=== PATIENT | male | born 1975 | race Caucasian/White ===

== ENCOUNTER 2016-10-16 20:30 | Emergency (ER) | payer OTHER ==
[2016-10-16 20:48] VITALS: BP 134/91; PULSE 60; RESP 16; TEMP 98.7
[2016-10-16] MEDS ORDERED: HYDROcodone/APAP 5-325MG 1 EACH TAB PO STA (20:57)
--- NOTE | 2016-10-16 21:02 | ED ---
General Adult HPI - General Chief complaint: Dental/Oral Stated complaint: Face swelling Time Seen by Provider: 10/16/16 20:52 Source: patient, RN notes reviewed Mode of arrival: ambulatory Limitations: no limitations - History of Present Illness Initial comments: This is a 41-year-old male who presents with left-sided dental pain 2 days. Patient is also noticing some swelling to the left lower jaw. Patient states he 's been taking Motrin but this has not helped. Patient states he fractured the bottom left molar a couple of days ago and this is when the pain started. Patient denies any purulent drainage or foul odor. Patient admits to a mild headache. Patient states he does have a dentist. Patient denies any recent fever , chills, shortness breath, chest pain, abdominal pain, nausea/vomiting/diarrhea , back pain, numbness, tingling, hematuria, or visual changes, or any other complaints. - Related Data Home Medications Medication Instructions Recorded Confirmed FLUoxetine HCL [PROzac] 50 mg PO DAILY 10/16/16 10/16/16 [place] Carbonate 750 mg PO 10/16/16 risperiDONE [RisperDAL] 3 mg PO 10/16/16 Previous Rx's Medication Instructions Recorded Penicillin V Potassium [Pen Vee K] 500 mg PO QID 7 Days 10/16/16 traMADol HCL [Ultram] 50 mg PO Q6HR #12 tab 10/16/16 Allergies Allergy/AdvReac Type Severity Reaction Status Date / Time aspirin Allergy Swelling Verified 10/16/16 20:48 Review of Systems ROS Statement: Those systems with pertinent positive or pertinent negative responses have been documented in the HPI. ROS Other: All systems not noted in ROS Statement are negative. Past Medical History Past Medical History: Asthma History of Any Multi-Drug Resistant Organisms: None Reported Past Surgical History: Hernia Repair, Orthopedic Surgery Past Psychological History: No Psychological Hx Reported Smoking Status: Former smoker Past Alcohol Use History: None Reported Past Drug Use History: None Reported General Exam - General Exam Comments Initial Comments: General: The patient is awake and alert, in no distress, and does not appear acutely ill. Eye: Pupils are equal, round and reactive to light, extra-ocular movements are intact. No pain with extraocular movements. No nystagmus. There is normal conjunctiva bilaterally. No signs of icterus. Ears: TMs pink and pearly with intact cone of light bilaterally. Normal external ear canals Nose: Nasal turbinates pink and moist Mouth and throat: Patient has poor dental hygiene and tooth #17 is fractured. There is no surrounding erythema, swelling or purulent drainage. There is very mild external facial swelling to the left lower jaw and this area is tender to palpation. There are moist mucous membranes and no oral lesions. Neck: Submandibular lymph nodes present on the left side. The neck is supple, there is no tenderness or JVD. Cardiovascular: There is a regular rate and rhythm. No murmur, rub or gallop is appreciated. Respiratory: Lungs are clear to auscultation, respirations are non-labored, breath sounds are equal. No wheezes, stridor, rales, or rhonchi. Musculoskeletal: Normal ROM, no tenderness. Strength 5/5. Sensation intact. Radial pulses equal bilaterally 2+. Neurological: A&O x 3. CN II-XII intact, There are no obvious motor or sensory deficits. Coordination appears grossly intact. Speech is normal. Skin: Skin is warm and dry and no rashes or lesions are noted. Psychiatric: Cooperative, appropriate mood & affect, normal judgment. Limitations: no limitations Course Vital Signs 10/16/16 20:45 Temperature 98.7 F Pulse Rate 60 Respiratory 16 Rate Blood Pressure 134/91 O2 Sat by Pulse 96 Oximetry Medical Decision Making - Medical Decision Making This is a 41-year-old male who presents with left-sided dental pain that started 2-3 days ago. On physical exam patient is afebrile in the EC. Patient has poor dental hygiene and tooth #17 is fractured. There is no surrounding erythema, swelling or purulent drainage. There is very mild external facial swelling to the left lower jaw and this area is tender to palpation. There are moist mucous membranes and no oral lesions. I discussed that the patient will be put on a course of Pen-Vee K. I discussed Tylenol and Motrin for pain and tramadol for breakthrough pain. Patient was given a [place] in the EC before discharge. I discussed warm compresses to the area. I discussed the patient is to follow up with a dentist as soon as possible. I discussed return parameters.Discussed that patient should follow up with PCP in one to 2 days or return to the EC for any worsening symptoms or for any further concerns. Patient was receptive to this plan and patient will be discharged home. Disposition Clinical Impression: Pain, dental Disposition: HOME SELF-CARE Condition: Good Instructions: Toothache (ED) Additional Instructions: Please use antibiotics as prescribed. Please use pain medication as prescribed. May use [id number] Tylenol or Motrin for pain. Use warm compresses to the area for pain. Please follow-up with dentist as soon as possible. [facility] dental plan: [facility] [place] [address], . [employer]: Have to pay $50 for x-rays and the rest is covered. [phone]. Please follow up with PCP tomorrow or return to the EC for any worsening symptoms or for any further concerns. Prescriptions: Penicillin V Potassium [Pen Vee K] 500 mg PO QID 7 Days traMADol HCL [Ultram] 50 mg PO Q6HR #12 tab Referrals: Chasity Cuba MD [Primary Care Provider] - 1-2 days Time of Disposition: 21:02
== END 2016-10-16 21:11 | disposition home or self-care (01) ==
LOC: EC 20:30
DX: S02.5XXA Fracture of tooth (traumatic), initial encounter for closed fracture (principal); Z79.899 Other long term (current) drug therapy; Z88.6 Allergy status to analgesic agent; Z87.891 Personal history of nicotine dependence
CPT/HCPCS: 99282; 99283

== ENCOUNTER 2017-02-17 22:22 | Emergency (ER) | payer OTHER ==
[2017-02-17 22:33] VITALS: RESP 18; TEMP 97.9
--- NOTE | 2017-02-17 23:07 | ED ---
General Adult HPI - General Chief complaint: Urogenital Stated complaint: Male Time Seen by Provider: 02/17/17 22:53 Source: patient, RN notes reviewed Mode of arrival: ambulatory Limitations: no limitations - History of Present Illness Initial comments: Chief complaint history of present illness a 41-year-old male to complaint of last left testicular pain getting progressively worse for the past 3 days. Denies any direct injury. Mild nausea. does not think he could have a sexually transmitted disease. - Related Data Home Medications Medication Instructions Recorded Confirmed FLUoxetine HCL [PROzac] 50 mg PO DAILY 10/16/16 10/16/16 [place] Carbonate 750 mg PO 10/16/16 risperiDONE [RisperDAL] 3 mg PO 10/16/16 Previous Rx's Medication Instructions Recorded Penicillin V Potassium [Pen Vee K] 500 mg PO QID 7 Days 10/16/16 traMADol HCL [Ultram] 50 mg PO Q6HR #12 tab 10/16/16 Doxycycline Hyclate 100 mg PO BID #20 tab 02/18/17 Allergies Allergy/AdvReac Type Severity Reaction Status Date / Time aspirin AdvReac Epistaxis Verified 02/17/17 23:07 Review of Systems ROS Statement: Those systems with pertinent positive or pertinent negative responses have been documented in the HPI. review of systems no headache chest pain shortness breath or GI problems decreased appetite. No neuro deficits complained of. system left testicular pain and swelling. 3 days. past medical problems none. Surgeries include left elbow titanium replacement. He states she's had 19 hernia surgeries. Family history father had gallbladder cancer grandmother had spider cancer. She has ALLERGIES to aspirin. He does smoke he was encouraged to stop denies alcohol use ROS Other: All systems not noted in ROS Statement are negative. Past Medical History Past Medical History: Asthma History of Any Multi-Drug Resistant Organisms: None Reported Past Surgical History: Hernia Repair, Orthopedic Surgery Past Psychological History: No Psychological Hx Reported Smoking Status: Current every day smoker Past Alcohol Use History: None Reported Past Drug Use History: None Reported General Exam - General Exam Comments Initial Comments: General: The patient is awake and alert,here because he's had left testicular pain for 3 days. Vital signs temperature 97.9 pulse 70 respiratory rate 18 pulse ox 90% room air blood pressure 114/66 Gastrointestinal: patient reports having had 19 hernia surgeries over the years. , left testicle larger than the right. Tenderness with palpation. Positive wrist or reflex. Denies penile discharge. Pain slightly less when the testicle is lifted up and increased when pushed downward. Patient will have an ultrasound to rule out torsion versus epididymitis Limitations: no limitations Course Vital Signs 02/17/17 22:30 Temperature 97.9 F Pulse Rate 70 Respiratory 18 Rate Blood Pressure 114/66 O2 Sat by Pulse 98 Oximetry Medical Decision Making - Medical Decision Making The patient still yet to provide a urine specimen which will be tested for regular urinalysis as well as Neisseria and gonorrhea. UltrasoundWas done and reviewed by radiologist and his impression is no evidence of torsion. The left testicle is heterogeneous and hypervascular which may reflect orchitis. Bilateral varicoceles are present. As read by Dr. Dean Patient will receive ceftriaxone 250 IM and doxycycline 100 twice a day for 10 days. Advised follow-up with his family physician and urology if he does not get improvement. Disposition Clinical Impression: Orchiditis Disposition: HOME SELF-CARE Condition: Stable Instructions: Orchitis (ED), Testicle Pain (ED) Additional Instructions: Call for urine results. Take medications until complete. Follow-up with Dr. Cuba. If no improvement in the next several days follow-up with on-call urologist Dr. Krause Prescriptions: Doxycycline Hyclate 100 mg PO BID #20 tab Referrals: Chasity Cuba MD [Primary Care Provider] - 1-2 days Time of Disposition: 00:40
--- NOTE | 2017-02-18 00:25 | US ---
EXAM: US Scrotum CLINICAL HISTORY: Reason: L teste pain r/o epididymitis v torsion TECHNIQUE: Real-time ultrasound of the scrotum with color Doppler and image documentation. COMPARISON: No relevant prior studies available. FINDINGS: Right testicle: 4.5 x 1.7 x 2.4 cm No torsion. Small hydrocele. Varicocele present. Left testicle: 5.0 x 2.6 x 2.9 cm Left testicle is heterogeneous and hypervascular compared to the right No torsion. Small hydrocele. Varicocele present. Epididymides: Right Epididymis: 1.1 cm, cyst visualized measuring 0.2 cm Left Epididymis: 1.2 cm, cyst visualized measuring 0.3 cm Scrotum: Unremarkable. IMPRESSION: No evidence of torsion. The left testicle is heterogeneous and hypervascular which may reflect orchitis. Bilateral varicoceles present.
[2017-02-18] MEDS ORDERED: DOXYCYCLINE 50 MG CAP PO STA (00:40)
[2017-02-18] MEDS ORDERED: cefTRIAXone 250 MG VIAL IM STA (00:43)
[2017-02-18 00:53] VITALS: BP 113/58; PULSE 66
[2017-02-18 01:17] LABS: Appearance,Urine Clear (Clear); Bilirubin,Urine Negative (Negative); Glucose,Urine (UA) Negative (Negative); Ketones,Urine Negative (Negative); Leukocyte Esterase,Urine Negative (Negative); Nitrite,Urine Negative (Negative); Protein,Urine Negative (Negative); Specific Gravity,Urine 1.019 (1.001-1.035); UA Billing (MACRO vs. MICRO) CHEM
== END 2017-02-18 01:05 | disposition home or self-care (01) ==
LOC: EC 22:22
DX: N45.2 Orchitis (principal); I86.1 Scrotal varices; F17.200 Nicotine dependence, unspecified, uncomplicated; Z79.899 Other long term (current) drug therapy; Z88.6 Allergy status to analgesic agent
CPT/HCPCS: 81003; 87491; 87591; 87086; 93975; 76870; 99284; 96372; J0696

== ENCOUNTER 2017-04-14 00:48 | Emergency (ER) | payer OTHER ==
[2017-04-14 00:53] VITALS: BP 124/72; PULSE 69; RESP 18; TEMP 97
[2017-04-14] MEDS ORDERED: ORPHENADRINE 30 MG/ML 2 ML VIAL IM STA (01:01)
[2017-04-14] MEDS ORDERED: KETOROLAC 60 MG/2 ML VIAL IM STA (01:01)
--- NOTE | 2017-04-14 01:03 | ED ---
Back Pain HPI - General Chief Complaint: Back Pain/Injury Stated Complaint: back pain Time Seen by Provider: 04/14/17 00:57 Source: patient, RN notes reviewed Limitations: no limitations - History of Present Illness Initial Comments: 41-year-old male presents emergency Department chief complaint low back pain. Patient states earlier tonight at work she was lifting a box 15-20 pounds states he felt a pull in his low back. Patient states his right-sided low back pain. Patient had no prior back injuries. Patient denies any bowel, bladder incontinence or retention. Denies any saddle anesthesias or lower extremity paresthesias. He states any movement makes the pain worse and is much better at rest. Patient has no abdominal pain denies any nausea, vomiting diarrhea constipation. - Related Data Previous Rx's Medication Instructions Recorded Cyclobenzaprine [Flexeril] 10 mg PO TID PRN #15 tab 04/14/17 Hydrocodone/Acetaminophen [[place] 1 tab PO Q6HR PRN #15 tab 04/14/17 5-325] Allergies Allergy/AdvReac Type Severity Reaction Status Date / Time aspirin AdvReac Epistaxis Verified 04/14/17 00:53 Review of Systems ROS Statement: Those systems with pertinent positive or pertinent negative responses have been documented in the HPI. ROS Other: All systems not noted in ROS Statement are negative. Past Medical History Past Medical History: Asthma History of Any Multi-Drug Resistant Organisms: None Reported Past Surgical History: Hernia Repair, Orthopedic Surgery Past Psychological History: No Psychological Hx Reported Smoking Status: Never smoker Past Alcohol Use History: None Reported Past Drug Use History: None Reported General Exam Limitations: no limitations General appearance: alert, in no apparent distress Neck exam: Present: normal inspection, full ROM. Absent: tenderness, meningismus, lymphadenopathy Respiratory exam: Present: normal lung sounds bilaterally. Absent: respiratory distress, wheezes, rales, rhonchi, stridor Cardiovascular Exam: Present: regular rate, normal rhythm, normal heart sounds. Absent: systolic murmur, diastolic murmur, rubs, gallop, clicks GI/Abdominal exam: Present: soft, normal bowel sounds. Absent: distended, tenderness, guarding, rebound, rigid Extremities exam: Present: normal inspection, full ROM, normal capillary refill , other (Lower extremity strength equal bilaterally neurovascular intact with equal pedal pulses). Absent: tenderness, pedal edema, joint swelling, calf tenderness Back exam: Present: normal inspection, full ROM (Moderate discomfort with range of motion), tenderness (Right low back), muscle spasm, paraspinal tenderness, other (Pain with straight leg raise). Absent: vertebral tenderness Neurological exam: Present: alert, oriented X3, CN II-XII intact, reflexes normal. Absent: motor sensory deficit Course Vital Signs 04/14/17 00:49 Temperature 97 F L Pulse Rate 69 Respiratory 18 Rate Blood Pressure 124/72 O2 Sat by Pulse 97 Oximetry Medical Decision Making - Medical Decision Making 41-year-old male presented for low back pain. Patient has a lumbar strain with no red flecks symptoms or neurological deficits. Patient we treated with conservative treatment pain medication, muscle relaxers and follow-up with workman's comp. Return parameters were discussed. Disposition Clinical Impression: Strain of lumbar region Disposition: HOME SELF-CARE Condition: Stable Instructions: Acute Low Back Pain (ED) Additional Instructions: Please return to the Emergency Department if symptoms worsen or any other concerns. Prescriptions: Cyclobenzaprine [Flexeril] 10 mg PO TID PRN #15 tab PRN Reason: Muscle Spasm Hydrocodone/Acetaminophen [[place] 5-325] 1 tab PO Q6HR PRN #15 tab PRN Reason: Pain Referrals: Chasity Cuba MD [Primary Care Provider] - 1-2 days Time of Disposition: 01:03
== END 2017-04-14 01:22 | disposition home or self-care (01) ==
LOC: EC 00:48
DX: S39.012A Strain of muscle, fascia and tendon of lower back, initial encounter (principal); Z88.6 Allergy status to analgesic agent; X50.9XXA Other and unspecified overexertion or strenuous movements or postures, initial encounter; Y93.89 Activity, other specified; Y92.69 Other specified industrial and construction area as the place of occurrence of the external cause
CPT/HCPCS: 99283; 96372 ×2; J2360; J1885

== ENCOUNTER 2017-08-21 20:17 | Emergency (ER) | payer OTHER ==
[2017-08-21] MEDS ORDERED: SODIUM CHLORIDE 0.9% 1,000 ML IV STA (20:37)
[2017-08-21] MEDS ORDERED: KETOROLAC 30 MG/ML 1 ML VIAL IVP STA (20:37)
[2017-08-21] MEDS ORDERED: ORPHENADRINE 30 MG/ML 2 ML VIAL IVP STA (20:37)
--- NOTE | 2017-08-21 20:41 | ED ---
General Adult HPI - General Chief complaint: Abdominal Pain Stated complaint: Back pain Time Seen by Provider: 08/21/17 20:32 Source: patient, RN notes reviewed Mode of arrival: ambulatory Limitations: no limitations - History of Present Illness Initial comments: 42-year-old male presents to the emergency department with a chief complaint of right flank pain. He states he's had this for the last few days. Any deep breaths or movement causes sharp stabbing pain to his back. His family has a history of kidney failure so he was concerned. Denies emergency with urination. States he had one episode of vomiting with the pain but that has subsided. There is no anterior abdominal pain. There is no other symptoms and the patient at this time. He states that he has never had anything like this before. He denies any falls traumas or injuries. He states he does move around a lot at work. Patient denies any recent fever, chills, shortness of breath, chest pain, abdominal pain, numbness or tingling, dysuria or hematuria, constipation or diarrhea, headaches or visual changes, or any other current symptoms. - Related Data Home Medications Medication Instructions Recorded Confirmed Ibuprofen [Motrin Ib] 400 mg PO Q6H PRN 08/21/17 08/21/17 Previous Rx's Medication Instructions Recorded Ibuprofen [Motrin] 600 mg PO Q6HR PRN #20 tab 08/21/17 Orphenadrine [Norflex] 100 mg PO Q12H #10 tablet.er 08/21/17 Allergies Allergy/AdvReac Type Severity Reaction Status Date / Time aspirin AdvReac Epistaxis Verified 08/21/17 20:54 Review of Systems ROS Statement: Those systems with pertinent positive or pertinent negative responses have been documented in the HPI. ROS Other: All systems not noted in ROS Statement are negative. Past Medical History Past Medical History: Asthma History of Any Multi-Drug Resistant Organisms: None Reported Past Surgical History: Hernia Repair, Orthopedic Surgery Past Psychological History: No Psychological Hx Reported Smoking Status: Current every day smoker Past Alcohol Use History: None Reported Past Drug Use History: None Reported General Exam - General Exam Comments Initial Comments: General: The patient is awake and alert, in no distress, and does not appear acutely ill. Eye: Pupils are equal, round and reactive to light, extra-ocular movements are intact; there is normal conjunctiva bilaterally. No signs of icterus. Ears, nose, mouth and throat: There are moist mucous membranes and no oral lesions. Neck: The neck is supple, there is no tenderness. Cardiovascular: There is a regular rate and rhythm. No murmur, rub or gallop is appreciated. Respiratory: Lungs are clear to auscultation, respirations are non-labored, breath sounds are equal. No wheezes, stridor, rales, or rhonchi. Gastrointestinal: Soft, non-distended, non-tender abdomen without masses or organomegaly noted. There is no rebound or guarding present. right sided CVA tenderness. Bowel sounds are unremarkable. Back: There is no tenderness to palpation in the midline. Some tenderness of the right paraspinal region in the lumbar area There is no obvious deformity. No rashes noted. Musculoskeletal: Normal ROM, no tenderness, There is no pedal edema. There is no calf tenderness or swelling. Sensation intact. Pulses equal bilaterally 2+. Neurological: CN II-XII intact, There are no obvious motor or sensory deficits. Coordination appears grossly intact. Speech is normal. Skin: Skin is warm and dry and no rashes or lesions are noted. Psychiatric: Cooperative, appropriate mood & affect, normal judgment. Limitations: no limitations Course Vital Signs 08/21/17 20:27 Temperature 98.0 F Pulse Rate 81 Respiratory 16 Rate Blood Pressure 123/83 O2 Sat by Pulse 98 Oximetry Medical Decision Making - Medical Decision Making 42-year-old male presents for right-sided back pain. At this time patient's lab work is reviewed and stable. X-rays reviewed as well. This time due to the fact is positional type pain. We discussed most likely a lumbar muscle strain. We did discuss mcfp. We did discuss return parameters and follow- up and all questions. Patient stated that he understood and he is agreement this plan. All questions have been answered. He will be discharged. - Lab Data Result diagrams: 08/21/17 20:41 08/21/17 20:41 Lab Results 08/21/17 08/21/17 08/21/17 Range/Units 20:41 20:41 20:41 WBC 8.9 (3.8-10.6) k/uL RBC 4.75 (4.30-5.90) m/uL Hgb 15.0 (13.0-17.5) gm/dL Hct 43.3 (39.0-53.0) % MCV 91.3 (80.0-100.0) fL MCH 31.6 (25.0-35.0) pg MCHC 34.7 (31.0-37.0) g/dL RDW 14.6 (11.5-15.5) % Plt Count 320 (150-450) k/uL Neutrophils % 58 % Lymphocytes % 32 % Monocytes % 6 % Eosinophils % 1 % Basophils % 0 % Neutrophils # 5.1 (1.3-7.7) k/uL Lymphocytes # 2.9 (1.0-4.8) k/uL Monocytes # 0.5 (0-1.0) k/uL Eosinophils # 0.1 (0-0.7) k/uL Basophils # 0.0 (0-0.2) k/uL Sodium 141 (137-145) mmol/L Potassium 4.0 (3.5-5.1) mmol/L Chloride 103 (98-107) mmol/L Carbon Dioxide 28 (22-30) mmol/L Anion Gap 10 mmol/L BUN 8 L (9-20) mg/dL Creatinine 0.90 (0.66-1.25) mg/dL Est GFR (MDRD) Af Amer >60 (>60 ml/min/1.73 sqM) Est GFR (MDRD) Non-Af >60 (>60 ml/min/1.73 sqM) Glucose 95 (74-99) mg/dL Calcium 9.4 (8.4-10.2) mg/dL Total Bilirubin 0.4 (0.2-1.3) mg/dL AST 28 (17-59) U/L ALT 30 (21-72) U/L Alkaline Phosphatase 48 (38-126) U/L Total Protein 7.3 (6.3-8.2) g/dL Albumin 4.5 (3.5-5.0) g/dL Amylase 44 (30-110) U/L Lipase 34 (23-300) U/L Urine Color Yellow Urine Appearance Clear (Clear) Urine pH 7.0 (5.0-8.0) Ur Specific [place] 1.013 (1.001-1.035) Urine Protein Trace H (Negative) Urine Glucose (UA) Negative (Negative) Urine Ketones Negative (Negative) Urine Blood Negative (Negative) Urine Nitrite Negative (Negative) Urine Bilirubin Negative (Negative) Urine Urobilinogen <2.0 (<2.0) mg/dL Ur Leukocyte Esterase Negative (Negative) - Radiology Data Radiology results: report reviewed, image reviewed Disposition Clinical Impression: Lumbar strain Disposition: HOME SELF-CARE Condition: Stable Instructions: Low Back Strain (ED), Lower Back Exercises (ED) Additional Instructions: Please use medication as discussed. Please follow up with family doctor if symptoms have not improved over the next two days. Please return to the emergency room if your symptoms increase or worsen or for any other concerns. Prescriptions: Ibuprofen [Motrin] 600 mg PO Q6HR PRN #20 tab PRN Reason: Pain Orphenadrine [Norflex] 100 mg PO Q12H #10 tablet.er Referrals: Lizzeth Kelley MD [STAFF PHYSICIAN] - 1-2 days Time of Disposition: 22:27
[2017-08-21 20:58] LABS: Appearance,Urine Clear (Clear); Basophils % (A) 0 %; Bilirubin,Urine Negative (Negative); Blood,Urine Negative (Negative); Color,Urine Yellow; Eosinophils # (A) 0.1 k/uL (0-0.7); Eosinophils % (A) 1 %; Glucose,Urine (UA) Negative (Negative); HCT 43.3 % (39.0-53.0); Ketones,Urine Negative (Negative); Leukocyte Esterase,Urine Negative (Negative); Lymphocytes # (A) 2.9 k/uL (1.0-4.8); Lymphocytes % (A) 32 %; MCH 31.6 pg (25.0-35.0); MCHC 34.7 g/dL (31.0-37.0); MCV 91.3 fL (80.0-100.0); Mean Platelet Volume 7.5; Monocytes # (A) 0.5 k/uL (0-1.0); Monocytes % (A) 6 %; Neutrophils # (A) 5.1 k/uL (1.3-7.7); Neutrophils % (A) 58 %; Nitrite,Urine Negative (Negative); Platelet Count 320 k/uL (150-450); Protein,Urine Trace (Negative); RBC 4.75 m/uL (4.30-5.90); RDW 14.6 % (11.5-15.5); Specific Gravity,Urine 1.013 (1.001-1.035); Urobilinogen,Urine <2.0 mg/dL (<2.0); WBC 8.9 k/uL (3.8-10.6)
[2017-08-21 21:08] LABS: ALT 30 U/L (21-72); AST 28 U/L (17-59); Albumin 4.5 g/dL (3.5-5.0); Alkaline Phosphatase 48 U/L (38-126); Amylase 44 U/L (30-110); Anion Gap 10 mmol/L; Blood Urea Nitrogen 8 mg/dL (9-20); Calcium 9.4 mg/dL (8.4-10.2); Carbon Dioxide 28 mmol/L (22-30); Chloride 103 mmol/L (98-107); Glucose 95 mg/dL (74-99); Lipase 34 U/L (23-300); Sodium 141 mmol/L (137-145); Total Bilirubin 0.4 mg/dL (0.2-1.3); Total Protein 7.3 g/dL (6.3-8.2)
--- NOTE | 2017-08-21 22:03 | XR ---
PROCEDURE: XR lumbar spine - 3V DATE AND TIME: 08/21/2017 9:30 PM REFERRING PHYSICIAN: Taryn Phillip CLINICAL INDICATION: [facility], Pain TECHNIQUE: Department protocol. COMPARISON: None FINDINGS: Bones and joints and soft tissues are unremarkable. There is no malalignment. No incidental findings. IMPRESSION: Negative examination.
[2017-08-21 22:41] VITALS: BP 126/80; PULSE 80; RESP 18; TEMP 97.9
== END 2017-08-21 22:41 | disposition home or self-care (01) ==
LOC: EC 20:17
DX: S39.012A Strain of muscle, fascia and tendon of lower back, initial encounter (principal); R10.9 Unspecified abdominal pain; R11.10 Vomiting, unspecified; F17.200 Nicotine dependence, unspecified, uncomplicated; Z88.6 Allergy status to analgesic agent
CPT/HCPCS: 36415; 80053; 82150; 83690; 85025; 81003; 72100; 99284; 96374; 96375; 96361; J2360; J1885

== ENCOUNTER 2017-11-19 21:07 | Emergency (ER) | payer OTHER ==
[2017-11-19] MEDS ORDERED: MORPHINE SULFATE 4 MG/0.8 ML SYRINGE (INJ) IVP STA (21:39)
[2017-11-19] MEDS ORDERED: ONDANSETRON 4 MG/2 ML VIAL IVP STA (21:40)
[2017-11-19] MEDS ORDERED: KETOROLAC 30 MG/ML 1 ML VIAL IVP STA (21:41)
[2017-11-19] MEDS ORDERED: SODIUM CHLORIDE 0.9% 1,000 ML IV SCH (21:45)
--- NOTE | 2017-11-19 22:10 | XR ---
EXAMINATION TYPE: XR tibia fibula RT DATE OF EXAM: 11/19/2017 COMPARISON: NONE HISTORY: Pain TECHNIQUE: 4 views FINDINGS: I see no fracture nor dislocation. Tibia and fibula appear intact. Knee joint and ankle erin nt appear intact. IMPRESSION: Negative right tibia and fibula exam. Small Achilles calcaneal spur noted.
--- NOTE | 2017-11-19 22:11 | XR ---
EXAMINATION TYPE: XR ankle complete RT DATE OF EXAM: 11/19/2017 COMPARISON: NONE HISTORY: Pain TECHNIQUE: 3 views FINDINGS: I see no fracture nor dislocation. Ankle mortise is anatomic. Joint spaces are normal. IMPRESSION: Negative right ankle exam
--- NOTE | 2017-11-19 22:13 | XR ---
EXAMINATION TYPE: XR foot complete RT DATE OF EXAM: 11/19/2017 COMPARISON: NONE HISTORY: Pain TECHNIQUE: 3 views FINDINGS: Metatarsals appear intact. I see no fracture nor dislocation. Joint spaces are normal. IMPRESSION: Negative right foot exam.
--- NOTE | 2017-11-19 23:10 | ED ---
Lower Extremity Injury HPI - General Chief Complaint: Extremity Injury, Lower Stated Complaint: rt leg trauma Time Seen by Provider: 11/19/17 21:17 Source: patient Mode of arrival: wheelchair Limitations: no limitations - History of Present Illness Initial Comments: 42 years old male is complaining about right leg pain, pain starts from the below knee all the way to the ankle and to the right foot he was working on a van, a lifting device gave him, the van landed on his right lower extremity him a there is no open wound or obvious deformity is complaining about the pain. No other injuries to the rest of the body. Eyes any head injury no chest pain or shortness of breath no abdominal pain no frequency urgency dysuria - Related Data Previous Rx's Medication Instructions Recorded HYDROcodone/APAP 5-325MG [Milroy 5] 1 each PO Q6HR PRN #12 tab 11/19/17 Ibuprofen [Motrin] 800 mg PO TID #30 tab 11/19/17 Allergies Allergy/AdvReac Type Severity Reaction Status Date / Time aspirin AdvReac Epistaxis Verified 11/19/17 21:22 Review of Systems ROS Statement: Those systems with pertinent positive or pertinent negative responses have been documented in the HPI. ROS Other: All systems not noted in ROS Statement are negative. Past Medical History Past Medical History: Asthma History of Any Multi-Drug Resistant Organisms: None Reported Past Surgical History: Hernia Repair, Orthopedic Surgery Past Psychological History: No Psychological Hx Reported Smoking Status: Current every day smoker Past Alcohol Use History: None Reported Past Drug Use History: None Reported General Exam - General Exam Comments Initial Comments: General: The patient is awake and alert, planing about pain in the right lower leg, initially he did not want me to examine the leg because it was too painful but then once I explained that is important that we examine her leg and he agreed Skin: Skin is warm and dry and no rashes or lesions are noted. No laceration or obvious deformity noticed of the right lower leg Eye: Pupils are equal, round and reactive to light, extra-ocular movements are intact; there is normal conjunctiva bilaterally. Ears, nose, mouth and throat: There are moist mucous membranes and no oral lesions. Neck: The neck is supple, there is no tenderness or JVD. Cardiovascular: There is a regular rate and rhythm. No murmur, rub or gallop is appreciated. Respiratory: To auscultation bilateral, no wheezing no rhonchi no distress respiratory nguyen noticed Gastrointestinal: Soft, non-distended, non-tender abdomen without masses or organomegaly noted. There is no rebound or guarding present. Bowel sounds are unremarkable. Back: There is no tenderness to palpation in the midline. There is no obvious deformity. Musculoskeletal: Right lower extremity is warm, pulses are palpable unable to check the capillary refill since he has fungal infection affect him on his toenails on the right foot but no neurovascular compromise noticed Neurological: CN II-XII intact, Cranial nerves III through XII are intact. There are no obvious motor or sensory deficits. Coordination appears grossly intact. Speech is normal. Psychiatric: Cooperative, appropriate mood & affect, normal judgment. Limitations: no limitations Course Vital Signs 11/19/17 21:12 Temperature 97.1 F L Pulse Rate 85 Respiratory 16 Rate Blood Pressure 122/56 O2 Sat by Pulse 98 Oximetry Right leg radiographs are normal, no injury to the tibia-fibula ankle joint looks good and no fracture noticed in the right foot as well regarding home on Motrin 800 mg 3 times a day as needed and Milroy 5 years 3 times a day for next [address] Rey stanford is on a city call today and he will follow with the Dr Femi Williamson Disposition Clinical Impression: Right leg injury Disposition: HOME SELF-CARE Condition: Good Instructions: Ankle Sprain (ED), Foot Contusion (ED) Prescriptions: HYDROcodone/APAP 5-325MG [Milroy 5] 1 each PO Q6HR PRN #12 tab PRN Reason: Pain Ibuprofen [Motrin] 800 mg PO TID #30 tab Is patient prescribed a controlled substance at d/c from ED?: Yes If prescribed controlled substance>3 days was MAPS reviewed?: No When asked, does pt state using other controlled substances?: No Referrals: None,Stated [Primary Care Provider] - 1-2 days Femi Williamson MD [STAFF PHYSICIAN] - 1-2 days
[2017-11-19 23:14] VITALS: BP 132/71; PULSE 81; RESP 17; TEMP 97.8
== END 2017-11-19 23:40 | disposition home or self-care (01) ==
LOC: EC 21:07
DX: S89.91XA Unspecified injury of right lower leg, initial encounter (principal); F17.200 Nicotine dependence, unspecified, uncomplicated; Z88.6 Allergy status to analgesic agent; X50.0XXA Overexertion from strenuous movement or load, initial encounter
CPT/HCPCS: 99283; 96374; 96375 ×2; 96361; 73590; 73610; 73630; J2405; J1885; J2270

== ENCOUNTER 2023-04-26 19:37 | Emergency (ER) | payer OTHER ==
[2023-04-26 19:45] VITALS: TEMP 97.8
[2023-04-26] MEDS ORDERED: HYDROmorphone 0.5 MG/0.5 ML SYRINGE IVP STA (19:57)
--- NOTE | 2023-04-26 21:14 | XR ---
EXAMINATION TYPE: XR hand complete LT, XR forearm LT DATE OF EXAM: 04/26/2023 8:14 PM CLINICAL INDICATION:Male, 47 years old with history of injury; [facility] COMPARISON: None TECHNIQUE: XR hand complete LT, XR forearm LT Frontal, lateral and oblique views were obtained. Front al and lateral views of the forearm. FINDINGS: Normal alignment of the visualized joints. No acute osseous pathology is identified. No e vidence of soft tissue swelling. Increased radiopaque densities are seen along the volar aspect of th e wrist. Soft tissue injury appears on the volar aspect of the wrist and possibly even the forearm. C hronic injuries to the medial epicondyle with well-corticated osseous bodies present. IMPRESSION: 1. No acute osseous pathology. 2. Suspected radiopaque foreign bodies along the volar aspect of the wrist.
[2023-04-26] MEDS ORDERED: LIDOCAINE 1% INJ 10MG/ML (20 ML MDV) SQ ONE (21:59)
--- NOTE | 2023-04-26 23:43 | ED ---
Upper Extremity HPI - General Chief Complaint: Extremity Injury, Upper Stated Complaint: Lac on left wrist Time Seen by Provider: 04/26/23 19:44 Source: patient, EMS Mode of arrival: EMS - History of Present Illness Initial Comments: Patient is a 47-year-old male who presents to the emergency department for laceration. Patient was transferred from [facility] apparently for orthopedic services however they did not take x-rays. Patient was using a knife grinder today and injured his left wrist. He has laceration to the wrist with pain. He denies numbness and tingling. Last tetanus unknown. - Related Data Previous Rx's Medication Instructions Recorded Cephalexin [Keflex] 500 mg PO Q6HR #28 cap 04/26/23 Ibuprofen [Motrin] 800 mg PO Q6H PRN #30 tab 04/26/23 Allergies Allergy/AdvReac Type Severity Reaction Status Date / Time aspirin AdvReac Epistaxis Verified 04/26/23 20:28 Review of Systems ROS Statement: Those systems with pertinent positive or pertinent negative responses have been documented in the HPI. ROS Other: All systems not noted in ROS Statement are negative. Past Medical History Past Medical History: Asthma History of Any Multi-Drug Resistant Organisms: None Reported Past Surgical History: Hernia Repair, Orthopedic Surgery Additional Past Surgical History / Comment(s): Elbow surgery Past Psychological History: No Psychological Hx Reported Smoking Status: Never smoker Past Alcohol Use History: None Reported Past Drug Use History: None Reported General Exam General appearance: alert Head exam: Present: atraumatic, normocephalic, normal inspection Respiratory exam: Present: normal lung sounds bilaterally. Absent: respiratory distress, wheezes, rales, rhonchi, stridor Cardiovascular Exam: Present: regular rate, normal rhythm, normal heart sounds. Absent: systolic murmur, diastolic murmur, rubs, gallop, clicks Extremities exam: Present: other (small lac proximal left ventral forearm.2nd lac across ventral left wrist. 3rd lac approaching lateral aspect of the thumb. No tendon damage visualized. Sensation intact. No vascular compromise. full ROM of the wrist. Partial flexion of the fingers without the ability to extend) Neurological exam: Present: alert Psychiatric exam: Present: normal affect, normal mood Skin exam: Present: warm, dry, intact, normal color. Absent: rash Course Vital Signs 04/26/23 04/26/23 04/26/23 19:37 21:20 22:00 Temperature 97.8 F Pulse Rate 57 L 60 61 Respiratory 17 16 16 Rate Blood Pressure 137/95 129/95 129/95 O2 Sat by Pulse 100 95 96 Oximetry 04/27/23 00:28 Temperature Pulse Rate 74 Respiratory 17 Rate Blood Pressure 114/74 O2 Sat by Pulse 96 Oximetry Medical Decision Making - Medical Decision Making Was pt. sent in by a medical professional or institution (, STEPHANIE, MAILROOM CLERK, urgent care, hospital, or fci...) When possible be specific @ -No Did you speak to anyone other than the patient for history (EMS, parent, family, police, friend...)? What history was obtained from this source @ -No Did you review nursing and triage notes (agree or disagree)? Why? @ -I reviewed and agree with nursing and triage notes Were old charts reviewed (outside hosp., previous admission, EMS record, old EKG, old radiological studies, urgent care reports/EKG's, fci records)? Report findings @ -No old charts were reviewed Differential Diagnosis (chest pain, altered mental status, abdominal pain women, abdominal pain men, vaginal bleeding, weakness, fever, dyspnea, syncope, headache, dizziness, GI bleed, back pain, seizure, CVA, palpatations, mental health)? @ -not applicable EKG interpreted by me (3pts min.). @ -As above X-rays interpreted by me (1pt min.). @ -acute fracture or dislocation. Suspected radiopaque foreign bodies CT interpreted by me (1pt min.). @ -None done U/S interpreted by me (1pt. min.). @ -None done What testing was considered but not performed or refused? (CT, X-rays, U/S, labs)? Why? @ -None What meds were considered but not given or refused? Why? @ -None Did you discuss the management of the patient with other professionals (professionals i.e. STEPHANIE Ayoub, MAILROOM CLERK, lab, RT, psych nurse, social work instructor, computer systems software architect, teacher, fire information officer, correctional casework specialist)? Give summary @ -No Was smoking cessation discussed for >3mins.? @ -No Was critical care preformed (if so, how long)? @ -No Were there social determinants of health that impacted care today? How? (Homelessness, low income, unemployed, alcoholism, drug addiction, transportation, low edu. Level, literacy, decrease access to med. care, long-term, rehab)? @ -No Was there de-escalation of care discussed even if they declined (Discuss DNR or withdrawal of care, Hospice)? DNR status @ -No What co-morbidities impacted this encounter? (DM, HTN, Smoking, COPD, CAD, Cancer, CVA, ARF, Chemo, Hep., AIDS, mental health diagnosis, sleep apnea, morbid obesity)? @ -None Was patient admitted / discharged? Hospital course, mention meds given and route, prescriptions, significant lab abnormalities, going to OR and other pertinent info. @ -47-year-old male presenting for lacerations. Patient unable to extend fingers despite laceration being on ventral aspect of the wrist. No tendon damage is visualized. Sensation intact. No vascular compromise. X-ray interpreted by myself no fracture or possible foreign bodies. The wrist wounds were irrigated extensively and approximated with sutures. Patient declined closure of the proximal forearm laceration. Patient given IV Rocephin. Discussed wound care data. Discussed case with Dr. Kilpatrick recommended follow-up in the office. Patient placed on Keflex prophylactically. Discussed return parameters. Undiagnosed new problem with uncertain prognosis? @ -No Drug Therapy requiring intensive monitoring for toxicity (Heparin, Nitro, Insulin, Cardizem)? @ -[No] Were any procedures done? @ -[No] Diagnosis/symptom? @ -left wrist injury, laceration Acute, or Chronic, or Acute on Chronic? @ -acute Uncomplicated (without systemic symptoms) or Complicated (systemic symptoms)? @ -uncomplicated Side effects of treatment? @ -[No] Exacerbation, Progression, or Severe Exacerbation? @ -[No] Poses a threat to life or bodily function? How? (Chest pain, [place], VA, pneumonia, PE, COPD, DKA, ARF, appy, cholecystitis, CVA, Diverticulitis, Homicidal, Suicidal, threat to staff... and all critical care pts) @ -[No] Dr. Schneider is my attendnig Disposition Clinical Impression: Laceration, Left wrist injury Disposition: HOME SELF-CARE Condition: Good Instructions (If sedation given, give patient instructions): Care For Your Stitches (ED), Laceration (ED) Additional Instructions: Leave wound uncovered. Keep wound clean and dry. Wash with a mild soap. Take Tylenol or anti-inflammatories such as Motrin for pain. Follow-up with global marketing specialist in 1-2 days. Return for suture removal in 10-14 days. Report back to the emergency department if you experience new, concerning, or worsening symptoms. Prescriptions: Cephalexin [Keflex] 500 mg PO Q6HR #28 cap Ibuprofen [Motrin] 800 mg PO Q6H PRN #30 tab PRN Reason: Pain Is patient prescribed a controlled substance at d/c from ED?: No Referrals: None,Stated [Primary Care Provider] - 1-2 days Yves Tobar DO [Doctor of Osteopathic Medicine] - 1-2 days
[2023-04-27 00:45] VITALS: BP 114/74; PULSE 74; RESP 17
== END 2023-04-27 00:29 | disposition home or self-care (01) ==
LOC: EC 19:37
DX: S61.512A Laceration without foreign body of left wrist, initial encounter (principal); J45.909 Unspecified asthma, uncomplicated; Z88.6 Allergy status to analgesic agent; X58.XXXA Exposure to other specified factors, initial encounter
CPT/HCPCS: 73090; 73130; 99284; 96365; 96375; J0696; J2001; J1170

== ENCOUNTER → 2024-07-12 | Outpatient (CLI) | payer OTHER ==
--- NOTE | 2024-07-12 17:28 | US ---
EXAMINATION TYPE: US thyroid st tissue head/neck DATE OF EXAM: 07/12/2024 COMPARISON: NONE CLINICAL INDICATION: Male, 49 years old with history of E03.9 HYPOTHYROIDISM; TECHNIQUE: Grayscale and color Doppler imaging of the thyroid gland. FINDINGS: GLAND SIZE: Right Lobe: 4.1 x 1.9 x 1.9 cm Overall Parenchyma: heterogeneous Left Lobe: 3.6 x 1.6 x 1.4 cm Overall Parenchyma: heterogeneous Isthmus Thickness: 0.4 cm NODULES RIGHT: # of nodules measured on right: 0 LEFT: # of nodules measured on left: 0 ISTHMUS: # of nodules measured in the isthmus: 0 Bilateral neck scanned, no evidence of lymphadenopathy. IMPRESSION: Heterogeneous thyroid tissue suggestive of thyroiditis. No solid or cystic thyroid nodule identified. 2017 ACR TI-RADS LEVEL: TR-RADS 1 - BENIGN: No FNA *Highest TI-RADS level nodule reported [email or web address] [facility], , 07/12/2024 5:25 PM
== END | disposition home or self-care (01) ==
LOC: RADUSWWP 16:22
PROVIDERS: ATTEND Family Medicine
DX: E03.9 Hypothyroidism, unspecified (principal); E04.1 Nontoxic single thyroid nodule; R20.0 Anesthesia of skin
CPT/HCPCS: 76536

== ENCOUNTER 2024-07-28 07:36 | Day surgery (SDC) | payer OTHER ==
[2024-07-28 07:54] VITALS: TEMP 97.6
[2024-07-28] MEDS: IV FLUID CONTINUATION 1,000 ML IV ONE (07:58)
[2024-07-28] MEDS: LACTATED RINGERS 1,000 ML IV SCH (07:59)
[2024-07-28] MEDS ORDERED: PROPOFOL 10 MG/ML 20 ML VIAL IV ONE (08:03)
[2024-07-28 08:49] VITALS: BP 122/79; PULSE 61; RESP 16
--- NOTE | 2024-08-03 02:16 | P.OP ---
Date of Procedure: 07/28/24 Preoperative Diagnosis: Screening Colonoscopy Postoperative Diagnosis: Sigmoid Colon Polyp Procedure(s) Performed: Colonoscopy with Snare Polypectomy Anesthesia: MAC Surgeon: Paul Sullivan Pathology: other (Sigmoid Colon Polyp) Condition: stable Disposition: PACU Description of Procedure: After informed consent was obtained, the patient was placed in the left lateral position and the above medications were titrated with adequate sedation. Monitoring was provided throughout the entire procedure. Digital rectal exam was performed revealing normal sphincter tone and no external hemorrhoids. The colonoscope was inserted into rectum and advanced under direct visualization, without difficulty, to the cecum, where the cecal strap, appendiceal orifice, and the ileocecal valve were identified. The quality of the preparation was good. The colonoscope was then withdrawn while carefully examining the mucosa. The colonic mucosa appeared normal with normal vascularity and haustral markings. No masses, AVM/s or diverticula were seen. There was a sigmoid colon appreciated. A hot snare polypectomy was performed and the polyp was passed off as a specimen. The endoscope was removed and the procedure terminated. The patient tolerated the procedure well without complications. The patient will need a repeat colonscopy in 2-3 years
== END 2024-07-28 09:01 | disposition home or self-care (01) ==
LOC: ORWHC2ENDO 07:36
PROVIDERS: ATTEND Surgery
DX: Z12.11 Encounter for screening for malignant neoplasm of colon (principal); K63.5 Polyp of colon; E07.9 Disorder of thyroid, unspecified; Z79.899 Other long term (current) drug therapy; Z79.890 Hormone replacement therapy; Z87.09 Personal history of other diseases of the respiratory system; Z98.890 Other specified postprocedural states; Z88.6 Allergy status to analgesic agent
CPT/HCPCS: 88305; 45385; J2704

== ENCOUNTER 2024-08-11 11:51 | Observation (INO) | payer OTHER ==
[2024-08-11] MEDS ORDERED: LIDOCAINE 1% (10MG/ML) FOR IV START INTRADERMA PRN (12:01)
[2024-08-11] MEDS: IV FLUID CONTINUATION 1,000 ML IV ONE (12:20)
[2024-08-11 12:33] LABS: Basophils % (A) 0 %; Eosinophils # (A) 0.3 k/uL (0-0.7); Eosinophils % (A) 4 %; HGB 16.3 gm/dL (13.0-17.5); Lymphocytes # (A) 2.9 k/uL (1.0-4.8); Lymphocytes % (A) 36 %; MCH 30.4 pg (25.0-35.0); MCHC 33.3 g/dL (31.0-37.0); MCV 91.4 fL (80.0-100.0); Mean Platelet Volume 7.2; Monocytes # (A) 0.4 k/uL (0-1.0); Monocytes % (A) 5 %; Neutrophils # (A) 4.3 k/uL (1.3-7.7); Neutrophils % (A) 52 %; Platelet Count 426 k/uL (150-450); RBC 5.36 m/uL (4.30-5.90); RDW 14.3 % (11.5-15.5); WBC 8.1 k/uL (3.8-10.6)
[2024-08-11] MEDS: MIDAZOLAM 2 MG/2 ML VIAL IV ONE ×2 (12:43→12:54)
[2024-08-11 12:44] LABS: ALT 40 U/L (4-49); AST 29 U/L (17-59); African American GFR (CKD) 84 (>60 ml/min/1.73 sqM); Albumin 4.9 g/dL (3.5-5.0); Alkaline Phosphatase 55 U/L (38-126); Anion Gap 10 mmol/L; Blood Urea Nitrogen 19 mg/dL (9-20); Calcium 9.3 mg/dL (8.4-10.2); Carbon Dioxide 26 mmol/L (22-30); Chloride 104 mmol/L (98-107); Glucose 95 mg/dL (74-99); Non-African American GFR(CKD) 73 (>60 ml/min/1.73 sqM); Potassium 4.8 mmol/L (3.5-5.1); Sodium 140 mmol/L (137-145); Total Bilirubin 0.7 mg/dL (0.2-1.3); Total Protein 8.1 g/dL (6.3-8.2)
[2024-08-11 12:46] LABS: Prothrombin Time 10.9 sec (10.0-12.5)
[2024-08-11] MEDS: HEPARIN SODIUM,PORCINE 5,000 UNIT/ML 1 ML VIAL SQ PRN (12:52)
[2024-08-11] MEDS: DEXAMETHASONE SOD PHOSPHATE 4 MG/ML 1 ML VIAL IV ONE (12:52)
[2024-08-11] MEDS: ONDANSETRON 4 MG/2 ML VIAL IVP ONE (12:52)
[2024-08-11] MEDS ORDERED: DEXAMETHASONE SOD PHOSPHATE 4 MG/ML 1 ML VIAL ONE (12:57)
[2024-08-11] MEDS ORDERED: ROPIVACAINE 5 MG/ML 30 ML VIAL ONE (12:57)
[2024-08-11] MEDS ORDERED: LIDOCAINE 1% INJ 10MG/ML (20 ML MDV) ONE (12:57)
[2024-08-11] MEDS ORDERED: fentaNYL (PF) 50 MCG/ML 2 ML AMP ONE (12:57)
[2024-08-11] MEDS ORDERED: GLYCOPYRROLATE 0.2 MG/ML 2 ML VIAL ONE (12:57)
[2024-08-11] MEDS ORDERED: PROPOFOL 10 MG/ML 20 ML VIAL IV ONE (12:57)
[2024-08-11] MEDS ORDERED: MIDAZOLAM 2 MG/2 ML VIAL ONE (12:57)
[2024-08-11] MEDS ORDERED: HYDROmorphone (PF) 1 MG/ML ONE (12:57)
[2024-08-11] MEDS ORDERED: SUCCINYLCHOLINE CHLORIDE 200 MG/10 ML VIAL IV ONE (12:57)
[2024-08-11] MEDS ORDERED: PHENYLEPHRINE-0.9% NACL SYG 1,000 MCG/10 ML SYRINGE ONE (12:57)
[2024-08-11] MEDS ORDERED: NEOSTIGMINE 1 MG/ML 10 ML VIAL ONE (12:57)
[2024-08-11] MEDS ORDERED: ROCURONIUM 10 MG/ML (5 ML VIAL) IV ONE (12:57)
[2024-08-11] MEDS: LACTATED RINGERS 1,000 ML IV SCH ×3 (12:59→17:12)
[2024-08-11] MEDS: ceFAZolin 3 GM in SODIUM CHLORIDE 0.9% 100 ML IVPB PRN (13:04)
[2024-08-11] MEDS: LACTATED RINGERS 1,000 ML IV ONE (14:09)
[2024-08-11] MEDS ORDERED: ONDANSETRON 4 MG/2 ML VIAL IVP PRN (15:34)
--- NOTE | 2024-08-11 15:47 | P.OP ---
Date of Procedure: 08/11/24 Preoperative Diagnosis: 1. Hiatal Hernia 2. Umbilical Hernia Postoperative Diagnosis: 1. Hiatal Hernia 2. Umbilical Hernia Procedure(s) Performed: 1 Robotic Hiatal Hernia Repair 2. Laparoscopic Umbilical Hernia Repair with Mesh Anesthesia: DARRIUS Surgeon: Paul Sullivan Estimated Blood Loss (ml): 50 Pathology: none sent Condition: stable Disposition: PACU Description of Procedure: The patient was transported to the operating room and placed supine on the operating table. The patient was intubated and sedated. The abdomen was then prepped and draped in the usual sterile fashion. An #11 blade was used to make an incision to the right of the umbilicus and a #5 mm optiview was used to gain access to the abdomen. The abdomen was insufflated. Additional robotic working ports were placed and the 5 mm optiview was replaced with a 8 mm robotic trochar. An additional #12 mm assist port was placed. The robot was docked. The liver was grossly normal without nodularity over its surface and there was no evidence of splenomegaly. The anterior serosal surface of the distal fundus and antrum of the stomach were unremarkable. The liver retractor was introduced in the right upper quadrant trocar site and used to elevate the left lobe of the liver. This allowed for complete exposure of the esophageal hiatus. A sliding axial hiatal hernia was present and was easily reduced from the mediastinum. The gastrohepatic ligament was opened over the caudad lobe of the liver using the vessel sealer and the hepatic branch of the vagus nerve was identified and carefully preserved. The peritoneal incisions were extended over the left and right candido and the mediastinum entered. The esophagus was circumferentially mobilized and all vessels encountered controlled with the vessel sealer. The anterior and posterior vagal nerve trunks were identified and the posterior nerve trunk left in place along the posterior wall of the esophagus. The posterior aspect of the gastroesophageal junction was fully mobilized as well, and a pediatric Sakshi drain passed around the esophagus at this level. This was secured in place with a tip up instrument. Using the drain for retraction, the esophageal mobilization was completed to allow for approximately 3-4 cm of the esophagus to lie comfortably within the abdominal cavity without tension. Next, the lesser sac was entered along the greater curvature of the stomach inferior to the inferior pole of the spleen. The short gastric vessels were divided with the Harmonic tiffanie to the level of the left candido and care was taken to ensure that the entire posterior aspect of the upper fundus of the stomach was completely mobilized. The diaphragmatic defect was then closed posteriorly using #0 V-Lock Suture The closure was sized to allow for passage of a #42 F dilator through the esophageal hiatus. This completed the hiatal hernia repair. Attention was then turned to the umbilical hernia. Additional 5 mm ports were placed. The umbilical hernia was noted to be about 4 cm with incarcerated fat which was reduced. A aletha bolivar was used to close the defect with #0 Vicryl Suture. A round ventralight mesh was then placed over the defect and tacked in place in a circumferential manner. The skin incisions were closed with #4-0 Monocryl. Skin glue was applied. The patient tolerated the procedure well and was sent to the PACU in stable condition.
[2024-08-11] MEDS: HYDROmorphone 0.5 MG/0.5 ML SYRINGE IVP PRN ×2 (16:33→18:20)
[2024-08-11] MEDS: droPERidol 5 MG/2 ML VIAL IVP ONE (17:11)
[2024-08-11] MEDS: PANTOPRAZOLE 40 MG TABLET PO SCH (18:21)
[2024-08-11] MEDS: KETOROLAC 15 MG/ML 1 ML VIAL IVP SCH (18:21)
[2024-08-11] MEDS: LUMATEPERONE TOSYLATE 42 MG PO SCH (21:11)
[2024-08-12] MEDS: HYDROcodone/APAP 10-325MG 1 EACH TAB PO PRN (02:03)
[2024-08-12] MEDS: LEVOTHYROXINE 25 MCG TAB PO SCH (06:34)
--- NOTE | 2024-08-12 07:08 | P.ANPRN ---
Procedure Note - Anesthesia - Nerve Block Performed Bilateral Rectus Abdominis Single Time Out Performed: Yes Date of Procedure: 08/11/24 Procedure Start Time: 12:42 Procedure Stop Time: 12:47 Location of Patient: PreOp Indication: Acute Post-Operative Pain, Requested by Surgeon Sedation Type: Sedate with meaningful contact maintained Preparation: Sterile Prep Position: Supine Needle Types: Pajunk Needle Gauge: 21 Ultrasound used to visualize needle placement: Yes Ultrasound used to observe medication spread: Yes Resistance on Injection: Normal Image Stored and Saved: Yes Events: Uneventful and Well Tolerated (Ropivacaine 0.5% 20 cc plus dexamethasone 4 mg given bilaterally)
[2024-08-12 09:01] LABS: BUN/Creat Ratio 16.08 Ratio (12.00-20.00); Blood Urea Nitrogen 19.3 mg/dL (9.0-27.0); Calcium 8.8 mg/dL (8.7-10.3); Carbon Dioxide 20.9 mmol/L (21.6-31.8); Chloride 104 mmol/L (96-109); Glucose 123 mg/dL (70-110); Potassium 4.9 mmol/L (3.5-5.5); Sodium 137 mmol/L (135-145)
[2024-08-12 10:19] LABS: Basophils # (A) 0.01 X 10*3/uL (0.00-0.10); Basophils % (A) 0.1 %; Eosinophils # (A) 0 X 10*3/uL (0.04-0.35); Eosinophils % (A) 0 %; HCT 44.5 % (39.6-50.0); HGB 14.7 g/dL (13.0-17.0); Lymphocytes % (A) 9.5 %; MCH 30.2 pg (27.0-32.0); MCV 91.6 FL (80.0-97.0); Mean Platelet Volume 10.1 FL (9.5-12.2); Monocytes # (A) 0.92 X 10*3/uL (0.20-1.00); Monocytes % (A) 7.9 %; NRBC Per 100 WBC 0 X 10*3/uL (0.00-0.01); Neutrophils # (A) 9.53 X 10*3/uL (1.80-7.70); Platelet Count 432 X 10*3/uL (140-440); RBC 4.86 X 10*6/uL (4.40-5.60); RDW 14.5 % (11.5-14.5); WBC 11.62 X 10*3/uL (4.50-10.00)
--- NOTE | 2024-08-12 15:40 | P.PN ---
Subjective Progress Note Date: 08/12/24 SURGICAL PROGRESS NOTE CHIEF COMPLAINT: Hiatal hernia, umbilical hernia HISTORY OF PRESENT ILLNESS: Patient is postop day #1 status post robotic hiatal hernia and laparoscopic umbilical hernia repair with mesh. Patient was still requiring IV Dilaudid for pain control. He denies any nausea or vomiting. No bowel activity. Urine output adequate. Afebrile. WBC is up from 8.1-11.6 hemoglobin 14.7 PHYSICAL EXAM: VITAL SIGNS: Reviewed. GENERAL: Well-developed in no acute distress. ABDOMEN: Soft. Mildly distended. Incision sites clean dry and intact. Tenderness at incision sites. NEUROLOGIC: Alert and oriented. Cranial nerves II through XII grossly intact. ASSESSMENT: 1. Hiatal hernia and umbilical hernia PLAN: -Continue pain management. Encourage patient to transition to oral pain medication -Continue clear liquid diet -Continue IV fluids -Encourage patient to ambulate -Incentive spirometer ordered -DVT prophylaxis subcu heparin and GI prophylaxis Protonix Physician Freight Broker note has been reviewed by physician. Signing provider agrees with the documented findings, assessment, and plan of care. Objective - Vital Signs Vital signs: Vital Signs Temp 98.1 F 08/12/24 13:05 Pulse 75 08/12/24 13:05 Resp 19 08/12/24 13:05 BP 135/82 08/12/24 13:05 Pulse Ox 98 08/12/24 13:05 FiO2 Intake & Output 08/11/24 08/12/24 08/12/24 18:59 06:59 18:59 Intake Total 2000 Output Total 85 600 Balance 1915 -600 Weight 121.7 kg Intake: IV 2000 Output: Urine 75 600 Estimated Blood Loss 10 Other: Voiding Method Indwelling Catheter Indwelling Catheter # Voids 0 - Labs CBC & Chem 7: 08/12/24 03:14 08/12/24 03:14 Labs: Abnormal Lab Results - Last 24 Hours (Table) 08/12/24 08/12/24 Range/Units 03:14 03:14 WBC 11.62 H (4.50-10.00) X 10*3/uL Immature Gran # 0.06 H (0.00-0.04) X 10*3/uL Neutrophils # 9.53 H (1.80-7.70) X 10*3/uL Eosinophils # 0 L (0.04-0.35) X 10*3/uL Carbon Dioxide 20.9 L (21.6-31.8) mmol/L Anion Gap 12.10 H (4.00-12.00) mmol/L Glucose 123 H (70-110) mg/dL
[2024-08-12] MEDS: HEPARIN SODIUM,PORCINE 5,000 UNIT/ML 1 ML VIAL SQ SCH (20:46)
[2024-08-13 07:58] VITALS: BP 135/87; PULSE 59; RESP 16; TEMP 98.3
[2024-08-13 09:52] LABS: Basophils # (A) 0.03 X 10*3/uL (0.00-0.10); Basophils % (A) 0.3 %; Eosinophils # (A) 0.21 X 10*3/uL (0.04-0.35); HCT 41.6 % (39.6-50.0); HGB 13.2 g/dL (13.0-17.0); Lymphocytes # (A) 3.27 X 10*3/uL (0.90-5.00); Lymphocytes % (A) 31.4 %; MCH 29.1 pg (27.0-32.0); MCHC 31.7 g/dL (32.0-37.0); MCV 91.8 FL (80.0-97.0); Mean Platelet Volume 9.9 FL (9.5-12.2); Monocytes # (A) 0.97 X 10*3/uL (0.20-1.00); Monocytes % (A) 9.3 %; NRBC Per 100 WBC 0 X 10*3/uL (0.00-0.01); Neutrophils # (A) 5.91 X 10*3/uL (1.80-7.70); Neutrophils % (A) 56.6 %; Platelet Count 357 X 10*3/uL (140-440); RBC 4.53 X 10*6/uL (4.40-5.60); RDW 14.4 % (11.5-14.5); WBC 10.43 X 10*3/uL (4.50-10.00)
--- NOTE | 2024-08-13 13:47 | P.PN ---
Progress Note - Text Progress Note Date: 08/13/24 Patient discharged from General Surgery. D/C Summary to follow
--- NOTE | 2024-08-14 03:11 | CONS ---
CONSULTATION CHIEF COMPLAINT: Umbilical and hiatal herniae. HISTORY OF PRESENT ILLNESS: This is a first known admission for this 49-year-old gentleman who has come in for an elective umbilical herniorrhaphy repair as well as a simultaneous hiatal herniorrhaphy. REVIEW OF SYSTEMS: He denies any chest pain, shortness of breath, nausea, vomiting, hematemesis, melena, urinary complaints, renal failure, etc. Past medical history, family history, and personal and social histories are all detailed in his admitting history. PHYSICAL EXAMINATION: VITAL SIGNS: Normal. HEAD, EARS, EYES, NOSE, MOUTH AND THROAT: Normal. CHEST: Clear. CARDIAC: Normal. ABDOMEN: Slightly protuberant and soft. EXTREMITIES: Normal. NEUROLOGIC: Intact. He is being admitted to the hospital. DIAGNOSES: 1. Umbilical hernia. 2. Hiatal hernia. RECOMMENDATIONS: None at this time. MMODL / SKYN: [id number] /
--- NOTE | 2024-08-14 03:11 | PN ---
PROGRESS NOTE CHIEF COMPLAINT: Postop hiatal and umbilical herniorrhaphies. HISTORY OF PRESENT ILLNESS: This gentleman is doing well. He is having no significant fever and chills, etc. He expects to go home. PHYSICAL EXAM: CHEST: Clear. CARDIAC: Normal. ABDOMEN: Soft, nontender, and dressings are dry. IMPRESSION: Status post umbilical and hiatal herniorrhaphies. PLAN: Possibly home today. MMODL / IJN: [id number] /
--- NOTE | 2024-08-18 12:32 | P.ANPRN ---
Procedure Note - Anesthesia - Nerve Block Performed Bilateral Rectus Abdominis Single Time Out Performed: Yes Date of Procedure: 08/11/24 Procedure Start Time: 12:42 Procedure Stop Time: 12:47 Location of Patient: PreOp Indication: Acute Post-Operative Pain, Requested by Surgeon Sedation Type: Sedate with meaningful contact maintained Preparation: Sterile Prep Position: Supine Needle Types: Pajunk Needle Gauge: 21 Ultrasound used to visualize needle placement: Yes Ultrasound used to observe medication spread: Yes Blood Aspirated: No Pain Paresthesia on Injection Noted: No Resistance on Injection: Normal Image Stored and Saved: Yes Events: Uneventful and Well Tolerated (Ropivacaine 0.5% 20 cc plus dexamethasone 4 mg given bilaterally)
== END 2024-08-13 14:28 | disposition home or self-care (01) ==
LOC: OR 11:51 → 4SSUR 15:15 → OR 15:15 → 4SSUR 16:21
PROVIDERS: ADMIT Surgery; ATTEND Surgery
DX: K42.9 Umbilical hernia without obstruction or gangrene (principal); K44.9 Diaphragmatic hernia without obstruction or gangrene; E03.9 Hypothyroidism, unspecified; Z79.890 Hormone replacement therapy; Z79.899 Other long term (current) drug therapy; Z88.6 Allergy status to analgesic agent
CPT/HCPCS: 43281; 49594; S2900; 64488; 80048; 80053; 85025; 85610; 86850; 86900; 86901; 96372